=== PATIENT | male | born 1940 | race Caucasian/White ===

== ENCOUNTER 2019-01-15 12:55 | Outpatient (CLI) | payer MEDICARE, BC ==
[2019-01-15 13:59] LABS: BASOPHILS # (AUTO) 0.03 x10^3/uL (0-0.1); BASOPHILS % (AUTO) 0 % (0-1); EOSINOPHILS # (AUTO) 0.09 x10^3/uL (0-0.4); EOSINOPHILS % (AUTO) 1 % (1-7); LYMPHOCYTES # (AUTO) 2.72 x10^3/uL (1-3.4); LYMPHOCYTES % (AUTO) 34 % (22-44); MD NO; MEAN CORPUSCULAR HEMOGLOBIN 32.2 pg (27.5-34.5); MEAN CORPUSCULAR HGB CONC 32.5 g/dL (33.2-36.2); MEAN CORPUSCULAR VOLUME 99.3 fL (81-97); MEAN PLATELET VOLUME 7.4 fL (7.4-10.4); MONOCYTES # (AUTO) 0.51 x10^3/uL (0.2-0.8); MONOCYTES % (AUTO) 6 % (2-9); NEUTROPHILS # (AUTO) 4.67 x10^3/uL (1.8-6.8); NEUTROPHILS % (AUTO) 58 % (42-75); PLATELET COUNT 226 x10^3/uL (130-400); RED BLOOD COUNT 4.88 x10^6/uL (4.38-5.82); RED CELL DISTRIBUTION WIDTH 12.5 % (9.4-14.8)
[2019-01-15 14:06] LABS: ANION GAP 3 mmol/L (5-15); CALCIUM 9.2 mg/dL (8.5-10.1); CHLORIDE 103 mmol/L (98-107); CREATININE 0.82 mg/dL (0.7-1.3)
[2019-01-15] MEDS ORDERED: CYAN100014 PO (14:23)
[2019-01-15] MEDS ORDERED: MULT1TAB60 PO (14:23)
[2019-01-15] MEDS ORDERED: Vitamin c PO (14:23)
[2019-01-15] MEDS ORDERED: POLY17PO5 PO (14:23)
[2019-01-15] MEDS ORDERED: EZET10TA18 PO (14:23)
[2019-01-15] MEDS ORDERED: ASPI-496 PO (14:23)
[2019-01-15] MEDS ORDERED: FISH1CAP PO (14:23)
== END 2019-01-15 23:59 | disposition home or self-care (01) ==
LOC: STAR 12:55
PROVIDERS: ATTEND Orthopaedic Surgery
DX: Z01.818 Encounter for other preprocedural examination (principal); M17.12 Unilateral primary osteoarthritis, left knee
CPT/HCPCS: 36415; 80048; 85025; 87081; 93005

== ENCOUNTER 2019-01-20 05:40 | Observation (INO) | payer MEDICARE, BC ==
[~2019-01-20] VITALS: Ht 172.7 cm; Wt 85.6 kg
[~2019-01-20 05:40] MED LIST: ASPI-496 PO; CYAN100014 PO; EZET10TA18 PO; FISH1CAP PO; MULT1TAB60 PO; POLY17PO5 PO; Vitamin c PO
[2019-01-20] MEDS ORDERED: TRANEXAMIC ACID 100 MG/ML, 10ML ONE (06:00)
[2019-01-20] MEDS ORDERED: KETOROLAC 60 MG/2 ML ONE (06:00)
[2019-01-20] MEDS ORDERED: VANCOMYCIN 1,000 MG ONE (06:00)
[2019-01-20] MEDS ORDERED: ROPIvacaine/PF 0.2%, 20 ML ONE (06:00)
[2019-01-20] MEDS ORDERED: EPINEPHRINE 1 MG/ML, 1ML ONE (06:00)
[2019-01-20] MEDS ORDERED: LACTATED RINGERS 1,000 ML IV SCH (06:09)
[2019-01-20 06:32] VITALS: BP 160/88
[2019-01-20] MEDS ORDERED: GLYCOPYRROLATE 0.2MG/1ML, 5ML ONE (07:29)
[2019-01-20] MEDS ORDERED: ONDANSETRON 2MG/ML, 2ML ONE (07:29)
[2019-01-20] MEDS ORDERED: SUCCINYLCHOLINE 20 MG/ML, 10ML ONE (07:29)
[2019-01-20] MEDS ORDERED: PROPOFOL 10 MG/ML, 20ML ONE (07:29)
[2019-01-20] MEDS ORDERED: CEFAZOLIN 1,000 MG ONE (07:29)
[2019-01-20] MEDS ORDERED: MIDAZOLAM 1 MG/ML, 2ML ONE (07:30)
[2019-01-20] MEDS ORDERED: FENTANYL PF 100 MCG/2ML ONE (07:31)
[2019-01-20] MEDS ORDERED: SCOPOLAMINE PATCH, 1.5MG PATCH.TD72 TD SCH (09:00)
[2019-01-20] MEDS ORDERED: POLYETHYLENE GLYCOL 17 GM PACKET PO PRN (09:00)
[2019-01-20] MEDS ORDERED: PROMETHAZINE 25 MG/ML, 1ML IM PRN (09:00)
[2019-01-20] MEDS ORDERED: BISACODYL 10 MG SUPP PR PRN (09:00)
[2019-01-20] MEDS ORDERED: hydrALAzine 20 MG/ML, 1ML IV PRN (09:00)
[2019-01-20] MEDS ORDERED: DIPHENHYDRAMINE 50 MG CAPSULE PO PRN (09:00)
[2019-01-20] MEDS ORDERED: ACETAMINOPHEN 325 MG TABLET PO PRN (09:00)
[2019-01-20] MEDS ORDERED: OXYcodone 5 MG/5 ML ORAL.SOL UDC PO PRN (09:00)
[2019-01-20] MEDS ORDERED: ONDANSETRON 4 MG TABLET PO PRN (09:00)
[2019-01-20] MEDS ORDERED: METOPROLOL 1 MG/ML, 5ML IV PRN (09:00)
[2019-01-20] MEDS ORDERED: DIAZEPAM 5 MG TABLET PO PRN (09:00)
[2019-01-20] MEDS ORDERED: SENNA/DOCUSATE TABLET PO PRN (09:00)
[2019-01-20] MEDS ORDERED: ALUMINUM/MAG/SIMETHICONE 30 ML UDC PO PRN (09:00)
[2019-01-20] MEDS ORDERED: LABETALOL 5MG/ML, 20ML IV PRN (09:00)
[2019-01-20] MEDS ORDERED: MAGNESIUM HYDROXIDE 8%, 30ML UDC PO PRN (09:00)
[2019-01-20] MEDS ORDERED: PROMETHAZINE 12.5 MG SUPP PR PRN (09:00)
[2019-01-20] MEDS ORDERED: HYDROmorphone 2 MG/ML, 1ML IVPush PRN (09:00)
[2019-01-20] MEDS ORDERED: KETOROLAC 30 MG/1 ML IV PRN (09:00)
[2019-01-20] MEDS ORDERED: ONDANSETRON 2MG/ML, 2ML IV PRN ×2 (09:00)
[2019-01-20] MEDS ORDERED: ZOLPIDEM 5MG TABLET PO PRN (09:00)
[2019-01-20] MEDS ORDERED: HYDROmorphone 1 MG/ML, 1ML INJ IVPush PRN (09:00)
[2019-01-20] MEDS ORDERED: LORazepam 2 MG/ML, 1ML IVPush PRN (09:00)
[2019-01-20] MEDS ORDERED: FENTANYL PF 100 MCG/2ML IV PRN (09:00)
[2019-01-20] MEDS ORDERED: HYDROcodone/APAP 10/325 MG TABLET PO PRN (09:00)
[2019-01-20] MEDS ORDERED: ACETAMINOPHEN 650 MG/20.3 ML UDC PO PRN (09:00)
[2019-01-20] MEDS ORDERED: PSYLLIUM PACKET PO PRN (09:00)
[2019-01-20] MEDS ORDERED: MEPERIDINE/PF 25MG/ML,1ML ONE (09:13)
[2019-01-20] MEDS ORDERED: OXYcodone 5 MG/5 ML ORAL.SOL UDC ONE (09:13)
[2019-01-20] MEDS ORDERED: TRANEXAMIC ACID 1,000 MG in SODIUM CHLORIDE 0.9% 100 ML IVPB ONE (09:30)
[2019-01-20] MEDS ORDERED: HYDROmorphone 2 MG/ML, 1ML ONE (09:35)
[2019-01-20] MEDS ORDERED: MEPERIDINE/PF 25MG/0.5ML IVPush ONE (10:00)
[2019-01-20 10:25] VITALS: BP 118/73
[2019-01-20] MEDS: D5%-0.45% NACL 1,000 ML IV SCH ×2 (11:53→20:45)
[2019-01-20] MEDS: ASCORBIC ACID 500 MG TABLET PO SCH (11:53)
[2019-01-20] MEDS: MULTIVITAMINS/MINERALS TABLET PO SCH (11:53)
[2019-01-20] MEDS: FERROUS SULFATE 325 MG TABLET PO SCH ×2 (11:53→20:47)
[2019-01-20] MEDS: KETOROLAC 30 MG/1 ML IV SCH ×2 (11:53→20:46)
[2019-01-20] MEDS: DOCUSATE 100 MG CAPSULE PO SCH ×2 (11:53→20:46)
[2019-01-20] MEDS: CALCIUM/VITAMIN D3 250-125 TABLET PO SCH ×2 (11:53→17:43)
[2019-01-20 12:55] VITALS: BP 125/73
[2019-01-20] MEDS: CEFAZOLIN PMX 1GM/50ML 50 ML IVPB SCH (15:57)
[2019-01-20] MEDS ORDERED: ASPIRIN 81 MG TABLET EC PO SCH (18:00)
[2019-01-20] MEDS ORDERED: EZETIMIBE 10 MG TABLET PO SCH (21:00)
[2019-01-20 21:52] VITALS: BP 122/75
[2019-01-21] MEDS: CEFAZOLIN PMX 1GM/50ML 50 ML IVPB SCH (00:12)
[2019-01-21] MEDS: D5%-0.45% NACL 1,000 ML IV SCH ×2 (00:54→08:19)
[2019-01-21 00:56] VITALS: BP 136/70
[2019-01-21] MEDS ORDERED: KETOROLAC 60 MG/2 ML ONE (04:59)
[2019-01-21] MEDS: KETOROLAC 30 MG/1 ML IV SCH (05:03)
[2019-01-21 05:26] VITALS: BP 118/64
[2019-01-21] MEDS: DOCUSATE 100 MG CAPSULE PO SCH (08:19)
[2019-01-21] MEDS: FERROUS SULFATE 325 MG TABLET PO SCH (08:19)
[2019-01-21] MEDS: ASCORBIC ACID 500 MG TABLET PO SCH (08:19)
[2019-01-21] MEDS: CALCIUM/VITAMIN D3 250-125 TABLET PO SCH (08:19)
[2019-01-21] MEDS: MULTIVITAMINS/MINERALS TABLET PO SCH (08:19)
[2019-01-21 08:43] VITALS: BP 115/71
[2019-01-21] MEDS ORDERED: DEXAMETHASONE 4 MG/ML, 1ML IVPush ONE (09:00)
[2019-01-21] MEDS ORDERED: OXYC5CAP2 PO (09:21)
[2019-01-21] MEDS ORDERED: TRAM50TA2 PO (09:21)
== END 2019-01-21 10:46 | disposition home or self-care (01) ==
LOC: OUT 05:40 → ORIP 08:54 → 4NOR 10:28 → DCLOUNGE 01-21 10:37
PROVIDERS: ADMIT Orthopaedic Surgery; ATTEND Orthopaedic Surgery
DX: M17.0 Bilateral primary osteoarthritis of knee (principal); M21.162 Varus deformity, not elsewhere classified, left knee; M21.161 Varus deformity, not elsewhere classified, right knee; M85.661 Other cyst of bone, right lower leg; M85.662 Other cyst of bone, left lower leg; Z91.048 Other nonmedicinal substance allergy status; Z88.8 Allergy status to other drugs, medicaments and biological substances; Z87.891 Personal history of nicotine dependence
CPT/HCPCS: 27447; 36415; 73560; 85014; 85018; 96365; 96366; 96375; 96376; 97162; 97166; C1713; C1776; G0378; J0171; J0330; J0690; J1100; J1170; J1885; J2175; J2250; J2405; J2704; J2795; J3010; J7120; J3370